=== PATIENT | female | born 1960 | race Hispanic/Latino ===

== ENCOUNTER 2022-06-23 20:54 | Emergency (ER) | payer BC ==
[~2022-06-23] VITALS: Ht 160 cm; Wt 72.6 kg
[2022-06-23 22:07] LABS: CLARITY,URINE CLEAR (CLEAR); COLOR,URINE YELLOW (YELLOW); KETONES,URINE NEGATIVE (NEGATIVE); LEUKOCYTE ESTERASE ,URINE SMALL (NEGATIVE); NITRITE,URINE NEGATIVE (NEGATIVE); PROTEIN,URINE DIPSTICK NEGATIVE (NEGATIVE); URINE UROBILINOGEN 0.2 mg/dL (0.2 - 1)
[2022-06-23 22:16] LABS: BACTERIA,URINE FEW /HPF; EPITHELIAL CELLS,URINE FEW /LPF; RBC,URINE 0-5 /HPF (0-5)
[2022-06-23] MEDS ORDERED: CYCLOBENZAPRINE5 MG PO (23:02)
[2022-06-23] MEDS ORDERED: NAPROSYN500 MG PO (23:02)
[2022-06-23] MEDS ORDERED: CEFDINIR300 MG PO (23:02)
== END 2022-06-23 23:31 | disposition home or self-care (01) ==
LOC: ER 21:00
DX: M54.50 Low back pain, unspecified (principal); N39.0 Urinary tract infection, site not specified
CPT/HCPCS: 81001; 81025; 99283

== ENCOUNTER → 2025-01-13 | Day surgery (SDC) | payer BC ==
[~2025-01-13] MED LIST: ALEVE220 M1 PO; CEFDINIR300 MG PO; CYCLOBENZAPRINE5 MG PO; GLUCAGON FOR INJ 1 MG VIAL ONE; HYOSCYAMINE SULFATE 0.5 MG/ML INJ ONE; LIDOCAINE HCL 2% LOCAL INJ 5 ML SDV VIAL INJ ONE; LOSARTAN POTASS25 MG PO; METOCLOPRAMIDE HCL 10 MG/2ML VIAL ONE; MULTI-VITAMIN1 EACH PO; NAPROSYN500 MG PO; PROPOFOL IV EMULSION 10 MG/ML 20 ML VIAL ONE
[2025-01-13] MEDS: LACTATED RINGER'S 1,000 ML ONE (10:55)
[2025-01-13 13:08] VITALS: TEMP 97.1
[2025-01-13 13:35] VITALS: BP 130/90; PULSE 87; RESP 12; O2SAT 98
== END | disposition home or self-care (01) ==
LOC: OR 10:15
PROVIDERS: ATTEND Internal Medicine Gastroenterology
DX: Z12.11 Encounter for screening for malignant neoplasm of colon (principal); K59.09 Other constipation; K64.8 Other hemorrhoids; I10 Essential (primary) hypertension; Z71.89 Other specified counseling; E66.01 Morbid (severe) obesity due to excess calories; R25.2 Cramp and spasm; Z01.810 Encounter for preprocedural cardiovascular examination; Z79.1 Long term (current) use of non-steroidal anti-inflammatories (NSAID); Z79.899 Other long term (current) drug therapy; Z68.28 Body mass index [BMI] 28.0-28.9, adult; Z71.3 Dietary counseling and surveillance
CPT/HCPCS: 45378; 93005; J1610; J1980; J2003; J2704; J7121; J2765